=== PATIENT | male | born 1980 | race Caucasian/White ===

== ENCOUNTER 2025-01-14 15:01 | Emergency (ER) | payer MEDICAID, SELFPAY ==
[2025-01-14 15:01] VITALS: BMI 34.9
[2025-01-14 15:11] VITALS: BP 147/87; PULSE 91; RESP 20; TEMP 37.1; O2SAT 98
--- NOTE | 2025-01-14 15:14 | XR_ITS ---
EXAMINATION: Ankle, left 2 views . Technique: AP lateral left ankle 2 views Exam date and time: January 14, 2025 1531 hours INDICATIONS: Patient fell today with into the ankle, ankle pain. FINDINGS: No fracture or dislocation No foreign body IMPRESSION: No fracture or dislocation
--- NOTE | 2025-01-14 15:17 | PD.EDLOWEX ---
Lower Extremity Injury RME/HPI General Chief Complaint: Extremity Injury, Lower Stated Complaint: LEFT PAIN X1DAY Time Seen by Provider: 01/14/25 15:06 Arrival date/time: 01/14/25 15:01 RME / HPI RME / HPI Narrative: 44-year-old male patient with significant history of psoriasis currently not on any medication, came in for evaluation regarding left ankle pain. This been ongoing for more than a day as worsening left ankle pain, patient told me that he is unable to ambulate due to pain. Denies any redness denies any fever denies any trauma denies any fall denies any other complaints no medications taken prior to arrival. Related Data Previous Rx's ?Medication ?Instructions ?Recorded amoxicillin 875 mg-potassium 1 tab PO BID #20 tabs 05/21/18 clavulanate 125 mg tablet (Augmentin) ibuprofen 800 mg tablet 800 mg PO Q8H PRN pain #20 tabs 12/27/22 ibuprofen 800 mg tablet 800 mg PO Q8H PRN pain #30 tabs 01/14/25 prednisone 50 mg tablet 50 mg PO QDAY #7 tabs 01/14/25 Allergies Allergy/AdvReac Type Severity Reaction Status Date / Time No Known Allergies Allergy Verified 01/14/25 15:03 Review of Systems Review of Systems Narrative Review of Systems: Review of system reviewed and within normal limits except mentioned in HPI ED Exam Narrative Physical exam: VITAL SIGNS: Reviewed. GENERAL APPEARANCE: Alert and interactive, follows commands, no acute distress, HEAD AND FACE: Non-traumatic. ENT: PERRL, pink conjunctivitis, eyelid no trauma, Mucous membrane moist. NECK: Supple, nontender, no nuchal rigidity. CHEST: No tenderness, no crepitus, no paradoxical movement, no retractions. LUNGS: Clear, well ventilated, symmetric, no rales, no wheezing, no ronchi, no stridor, good breath sounds bilaterally. HEART: Regular rate, regular rhythm, no murmur, no gallops. ABDOMEN: Soft, positive bowel sounds, nondistended, no guarding, nontender, no rebound, no masses, RECTAL: Deferred. GENITAL: Deferred. NEUROLOGICAL: Gross motor function intact sensory function intact, Appropriate for age. MUSCULOSKELETAL: low back nontender, full range of motion. EXTREMITIES: Left ankle tenderness mild swelling, no redness, full range of motion. SKIN: Color pink, dry, multiple scaly rashes scattered all over no lacerations, no abrasions, no contusions. LYMPHATICS: Deferred. Course Quality Measures none Orders Category Date Time Status Crutches .NOW Care 01/14/25 16:42 Active XR ankle LT 2V Stat Exams 01/14/25 15:14 Completed Dexamethasone Inj [Decadron Inj] Med 01/14/25 15:14 Discontinued 10 mg IM X1 ONE Ketorolac Inj [Toradol Inj] Med 01/14/25 15:14 Discontinued 30 mg IM X1 ONE Vital Signs Vital signs: Vital Signs Temperature 98.7 F 01/14/25 15:11 Pulse Rate 91 01/14/25 15:11 Respiratory Rate 20 01/14/25 15:11 Blood Pressure 147/87 H 01/14/25 15:11 Pulse Oximetry (%) 98 01/14/25 15:11 Oxygen Delivery Method Room Air 01/14/25 15:11 Extremity Injury, Lower MDM Narrative MDM Narrative:: 44-year-old male patient with significant history of psoriasis currently not on any medication, came in for evaluation regarding left ankle pain. This been ongoing for more than a day as worsening left ankle pain, patient told me that he is unable to ambulate due to pain. Denies any redness denies any fever denies any trauma denies any fall denies any other complaints no medications taken prior to arrival. X-ray of the ankle came back unremarkable. Patient received Decadron and Toradol with significant provide pain. Patient still limping patient was supplied with crutches Patient appears nontoxic and hemodynamically stable. Patient discharged home and instructed to follow-up with primary care provider in 24 to 48 hours. Instructed to return to the emergency department immediately if worsening of symptoms Patient data External records reviewed:: None Clinical information provided by:: patient Social determinants that could affect healthcare access:: none Patient has the following chronic illnesses:: Psoriasis How is presenting disease/condition affected by chronic disease/condition?: exacerbated by Evaluation data The following diagnostics were reviewed and interpreted by me:: radiology exam(s) Lab and/or radiology exams considered but not ordered:: None Interpretation Summary: X-ray of the ankle came back unremarkable. Medications / Prescriptions Medications or Prescriptions considered but not ordered:: None Medication administrations:: Medication Administration History Discontinued Medications Dexamethasone Sodium Phosphate (Dexamethasone Sod Phos Inj 10 Mg/Ml Vial) 10 mg IM X1 ONE Stop: 01/14/25 15:15 Last Admin: 01/14/25 15:22 Dose: 10 mg Documented By: TM Ketorolac Tromethamine (Ketorolac Inj 60 Mg/2 Ml Vial) 30 mg IM X1 ONE Stop: 01/14/25 15:15 Last Admin: 01/14/25 15:21 Dose: 30 mg Documented By: TM Toradol and Decadron Consultations Consultation(s) initiated? (list below): No Diagnosis Extremity Injury, Lower Differential Diagnosis: ankle sprain and strain and ankle fracture Most likely diagnosis given after review of the tests above:: psoriatic arthritis Admission Indicated Admission indicated?: not indicated Explain why admission is indicated or not indicated:: Stable Admission Request Was there a request for admission?: No Disposition Plan Disposition Plan: Discharge Discharge Attestation Discharge Attestation: The patient and all family members were given an opportunity to ask questions and understood the discharge instructions. Discharge instructions specifically effects, indications for sooner follow up or return to the emergency department, and the expected course of current diagnosis. Patient condition: Stable Discharge Plan Plan Patient Disposition: HOME (Self Care) Disposition Comment: stable Prescriptions/Referrals Prescriptions/Med Rec: New prednisone 50 mg tablet 50 mg PO QDAY Qty: 7 0RF ibuprofen 800 mg tablet 800 mg PO Q8H PRN (Reason: pain) Qty: 30 0RF No Action amoxicillin-pot clavulanate [Augmentin] 875-125 mg tablet 1 tab PO BID Qty: 20 0RF ibuprofen 800 mg tablet 800 mg PO Q8H PRN (Reason: pain) Qty: 20 0RF Referrals: No Primary/Family,Physician [Primary Care Provider] - In 1 week Problem List Clinical Impression: Psoriatic arthritis Patient/Caregiver Discharge Instructions Discharge Activity: activity as tolerated Education Materials: What Is Psoriasis? Additional Instructions: Thank you for the opportunity for serving you today. You are stable for discharged . You are advised to: Follow-up with your PCP in 1 to 2 days Return to ED for worsening of symptoms Increase oral fluids Take medication as prescribed Print Language: Argentine Stand Alone Forms: [facility] Award Info., Patient Portal Info Letter
[2025-01-14] MEDS: KETOROLAC INJ 60 MG/2 ML VIAL 30 MG IM (15:21)
[2025-01-14] MEDS: DEXAMETHASONE SOD PHOS INJ 10 MG/ML VIAL IM (15:22)
== END 2025-01-14 17:03 | disposition home or self-care (01) ==
PROVIDERS: Emergency Provider Emergency Medicine
DX: L40.50 Arthropathic psoriasis, unspecified (principal)
CPT/HCPCS: 73600; 96372; 99283; J1100; J1885

== ENCOUNTER 2025-04-22 14:27 | Emergency (ER) | payer MEDICAID, SELFPAY ==
[2025-04-22 14:42] VITALS: BP 163/108; BP 168/104; PULSE 86; RESP 18; TEMP 36.8; O2SAT 96; BMI 36.5
--- NOTE | 2025-04-22 14:52 | XR_ITS ---
Examination: Right ankle 2 views Technique one AP lateral right ankle 2 views Date and time: April 22, 2025 1501 hours INDICATIONS: Right ankle pain beginning 2 days ago. FINDINGS: No fracture or dislocation. No foreign body Mild narrowing tibiotalar joint IMPRESSION: Mild narrowing tibiotalar joint
--- NOTE | 2025-04-22 14:54 | PD.EDANKLE ---
Lower Extremity Injury RME/HPI General Chief Complaint: Ankle/Foot Injury Stated Complaint: Poss. gout in right foot Time Seen by Provider: 04/22/25 14:28 Arrival date/time: 04/22/25 14:27 RME / HPI RME / HPI Narrative: 44-year-old male patient with significant history of psoriasis currently not taking any medications came in for evaluation regarding right ankle pain. Patient woke up with right ankle pain, according to him out of nowhere for the last few days. Patient still able to ambulate however limping. Patient denies any trauma or fall. Denies any redness, except for mild swelling. Patient denies any other complaints. Patient is worried that they could be flareup of his gout also. Related Data Previous Rx's ?Medication ?Instructions ?Recorded amoxicillin 875 mg-potassium 1 tab PO BID #20 tabs 05/21/18 clavulanate 125 mg tablet (Augmentin) ibuprofen 800 mg tablet 800 mg PO Q8H PRN pain #20 tabs 12/27/22 ibuprofen 800 mg tablet 800 mg PO Q8H PRN pain #30 tabs 01/14/25 prednisone 50 mg tablet 50 mg PO QDAY #7 tabs 01/14/25 allopurinol 100 mg tablet 100 mg PO QDAY #30 tabs 04/22/25 colchicine 0.6 mg tablet 0.6 mg PO BID #10 tabs 04/22/25 indomethacin 50 mg capsule 50 mg PO TID PRN pain #30 caps 04/22/25 Allergies Allergy/AdvReac Type Severity Reaction Status Date / Time No Known Allergies Allergy Verified 04/22/25 14:30 Review of Systems Review of Systems Narrative Review of Systems: Review of system reviewed and within normal limits except mentioned in HPI ED Exam Narrative Physical exam: VITAL SIGNS: Reviewed. GENERAL APPEARANCE: Alert and interactive, follows commands, no acute distress, HEAD AND FACE: Non-traumatic. ENT: PERRL, pink conjunctivitis, eyelid no trauma, Mucous membrane moist. NECK: Supple, nontender, no nuchal rigidity. CHEST: No tenderness, no crepitus, no paradoxical movement, no retractions. LUNGS: Clear, well ventilated, symmetric, no rales, no wheezing, no ronchi, no stridor, good breath sounds bilaterally. HEART: Regular rate, regular rhythm, no murmur, no gallops. ABDOMEN: Soft, positive bowel sounds, nondistended, no guarding, nontender, no rebound, no masses, RECTAL: Deferred. GENITAL: Deferred. NEUROLOGICAL: Gross motor function intact sensory function intact, Appropriate for age. MUSCULOSKELETAL: low back nontender, full range of motion. EXTREMITIES: Nontender, full range of motion. SKIN: Color pink, dry, no rash, no lacerations, no abrasions, no contusions. LYMPHATICS: Deferred. Course Quality Measures none Orders Category Date Time Status XR ankle RT 2V Stat Exams 04/22/25 14:52 Completed Uric Acid Stat Lab 04/22/25 15:23 Completed Ketorolac Inj [Toradol Inj] Med 04/22/25 14:52 Discontinued 30 mg IM X1 ONE dexAMETHasone TAB [Decadron Tab] Med 04/22/25 14:52 Discontinued 10 mg PO X1 ONE Vital Signs Vital signs: Vital Signs Temperature 98.2 F 04/22/25 14:42 Pulse Rate 86 04/22/25 14:42 Respiratory Rate 18 04/22/25 14:42 Blood Pressure 163/108 H 04/22/25 14:42 Pulse Oximetry (%) 96 04/22/25 14:42 Oxygen Delivery Method Room Air 04/22/25 14:42 Extremity Injury, Lower MDM Narrative MDM Narrative:: 44-year-old male patient with significant history of psoriasis currently not taking any medications came in for evaluation regarding right ankle pain. Patient woke up with right ankle pain, according to him out of nowhere for the last few days. Patient still able to ambulate however limping. Patient denies any trauma or fall. Denies any redness, except for mild swelling. Patient denies any other complaints. Patient is worried that they could be flareup of his gout also. X-ray of the ankle came back unremarkable. Except for narrowing of the joint space. Uric acid was noted to be 9.5 slight elevated. Was given Toradol and Decadron with significant improvement of symptoms Results discussed with the patient. Patient appears nontoxic and hemodynamically stable .Decision to discharge the patient. The patient/family was given an opportunity to ask questions and understood their discharge instructions. Discharge instructions specifically included follow up provider and time frame, current and/or new medications and possible side effects, indications for sooner follow up or return to the emergency department, and the expected course of current diagnosis. Patient reports feeling better as well and giving evidence of significant clinical improvement, I believe patient is now a candidate for discharge. Patient data External records reviewed:: None Clinical information provided by:: patient Social determinants that could affect healthcare access:: none Patient has the following chronic illnesses:: History of gout How is presenting disease/condition affected by chronic disease/condition?: caused by Evaluation data The following diagnostics were reviewed and interpreted by me:: lab results and radiology exam(s) Lab and/or radiology exams considered but not ordered:: None Interpretation Summary: See results MDM Medications / Prescriptions Medications or Prescriptions considered but not ordered:: None Medication administrations:: Medication Administration History Discontinued Medications Dexamethasone (Dexamethasone 4 Mg Tablet) 10 mg PO X1 ONE; Protocol Stop: 04/22/25 14:53 Last Admin: 04/22/25 15:02 Dose: 10 mg Documented By: DARREN Ketorolac Tromethamine (Ketorolac Inj 60 Mg/2 Ml Vial) 30 mg IM X1 ONE Stop: 04/22/25 14:53 Last Admin: 04/22/25 15:01 Dose: 30 mg Documented By: DARREN Toradol Decadron Consultations Consultation(s) initiated? (list below): No Diagnosis Extremity Injury, Lower Differential Diagnosis: other (Ankle pain, ankle sprain, gout attack, hyperuricemia) Most likely diagnosis given after review of the tests above:: Gout attack, hyperuricemia Admission Indicated Admission indicated?: not indicated Explain why admission is indicated or not indicated:: Stable Admission Request Was there a request for admission?: No Disposition Plan Disposition Plan: Discharge Discharge Attestation Discharge Attestation: The patient and all family members were given an opportunity to ask questions and understood the discharge instructions. Discharge instructions specifically effects, indications for sooner follow up or return to the emergency department, and the expected course of current diagnosis. Patient condition: Stable Discharge Plan Plan Patient Disposition: HOME (Self Care) Discharge Disposition comment: Stable Prescriptions/Referrals Prescriptions/Med Rec: New colchicine 0.6 mg tablet 0.6 mg PO BID Qty: 10 0RF indomethacin 50 mg capsule 50 mg PO TID PRN (Reason: pain) Qty: 30 0RF Rx Instructions: administer with food or milk allopurinol 100 mg tablet 100 mg PO QDAY Qty: 30 0RF No Action amoxicillin-pot clavulanate [Augmentin] 875-125 mg tablet 1 tab PO BID Qty: 20 0RF ibuprofen 800 mg tablet 800 mg PO Q8H PRN (Reason: pain) Qty: 20 0RF prednisone 50 mg tablet 50 mg PO QDAY Qty: 7 0RF ibuprofen 800 mg tablet 800 mg PO Q8H PRN (Reason: pain) Qty: 30 0RF Referrals: Mckinley Hernandez MD [Primary Care Provider] - In 1 week Problem List Clinical Impression: Gout attack, Hyperuricemia Patient/Caregiver Discharge Instructions Discharge Activity: activity as tolerated Education Materials: ED Gout Diet Additional Instructions: Thank you for the opportunity for serving you today. You are stable for discharged . You are advised to: Follow-up with your PCP in 1 to 2 days Return to ED for worsening of symptoms Increase oral fluids Take medication as prescribed Start your allopurinol on day 6 from now. Decrease intake of purine diet , decrease intake of beer Print Language: Burmese Stand Alone Forms: Tamiko Award Info., Patient Portal Info Letter PA/ROSAURA Supervising Physician MARK/ROSAURA Supervising Physician: MD Gavin
[2025-04-22] MEDS: KETOROLAC INJ 60 MG/2 ML VIAL 30 MG IM (15:01)
[2025-04-22 15:47] LABS: Uric Acid 9.5 mg/dL (3.7-9.2)
== END 2025-04-22 16:55 | disposition home or self-care (01) ==
PROVIDERS: Emergency Provider Nurse Practitioner Family; PCP Family Medicine
DX: M10.9 Gout, unspecified (principal); M25.871 Other specified joint disorders, right ankle and foot
CPT/HCPCS: 36415; 73600; 84550; 96372; 99283; J1885; J8540